=== PATIENT | male | born 1970 | race Caucasian/White ===

== ENCOUNTER → 2017-06-28 | Day surgery (SDC) | payer OTHER ==
[2017-06-27 10:57] VITALS: BMI 32.1
[~2017-06-28] MED LIST: Midazolam HCl 2 mg/2 ml Vial ONE; Ondansetron HCl/PF 4 MG/2 ML Vial ONE; Propofol 1,000 MG/100 ML VIAL IV ONE
--- NOTE | 2017-06-28 16:14 | MRI ---
MR OF THE LEFT WRIST WITHOUT IV CONTRAST 06/28/17 HISTORY: Fall in October with concern for a TFCC tear. COMPARISON: Left wrist radiograph dated 11/17/16 and 12/12/16. TECHNIQUE: The patient underwent anesthesia for the examination. The patient was placed in the magnet in an over head positioning. Due to limitations in arm positioning, the positioning within the coil was slightly limited. The patient remained in hyperextension at the radiocarpal joint which slightly limited imag e detail. There was also some motion artifact on the examination that limits image detail. FINDINGS: There is prominent fluid distention seen within the DRUJ. There is transverse oriented tear involving the body of the TFC with the largest tear gap seen on image 7 of series 11 measuring approximately 6 mm. The palmar and dorsal radial ulnar ligaments remain intact. The peripheral fovea and styloid tip attachments appear intact. There is limited visualization of meniscal homologue. The ECU tendon appe ars intact. The remainder of the extensor tendons appear intact. The scapholunate and lunatotriquetral ligaments appear intact. The extrinsic ligaments are slightly l imited in evaluation, but appear to be grossly intact. The carpal tunnel and its contents appear with in normal limits. The FCR and FCU tendons appear within normal limits. There is suspicion for a heale d dorsal avulsion injury involving the hamate, best seen on image 7 of series 6. The capitate and nehal ate angle appears to be colinear. The scaphoid is intact. IMPRESSION: 1. Large transverse oriented tear extending through the body of the TFC with approximately 6 mm gap between the central and peripheral fragments. There is a prominent amount of fluid in the DRUJ. 2. Suspicion for healed small avulsion fracture involving the dorsal hamate. 3. Scapholunate and lunatotriquetral ligaments appear intact. 4. Visualized flexor and extensor tendons appear intact. POS: [facility]
== END ==
LOC: SDC/OP 11:08
PROVIDERS: ATTEND Orthopaedic Surgery Hand Surgery
DX: S63.592A Other specified sprain of left wrist, initial encounter (principal); M25.332 Other instability, left wrist; F43.10 Post-traumatic stress disorder, unspecified; F17.290 Nicotine dependence, other tobacco product, uncomplicated; Z88.8 Allergy status to other drugs, medicaments and biological substances; Z98.1 Arthrodesis status; Z90.49 Acquired absence of other specified parts of digestive tract; Z98.890 Other specified postprocedural states; W01.0XXA Fall on same level from slipping, tripping and stumbling without subsequent striking against object, initial encounter
CPT/HCPCS: J2250; J2405; J2704

== ENCOUNTER 2017-07-16 10:01 | Outpatient (CLI) | payer OTHER ==
[2017-07-16 11:42] LABS: #Lymphocytes 1.8 thou/uL (1.20-3.40); #Monocytes 0.3 thou/uL (0.11-0.59); %Basophils 0.6 % (0.0-1.0); %Eosinophils 0.9 % (0.0-10.0); %Lymphocytes 34.4 % (21.0-51.0); %Monocytes 6.2 % (0.0-10.0); Bilirubin Negative (Negative); Blood, Urine Negative (Negative); Glucose, Urine (Dipstick) Negative (Negative); Hematocrit 46.4 % (42.0-52.0); Ketone, Urine Negative (Negative); Mean Platelet Volume 8.5 fL (7.4-10.4); Nitrite Negative (Negative); Protein, Urine (Dipstick) Negative (Neg-Trace); Urobilinogen 0.2 mg/dL (0.2-1.0); White Blood Cell (WBC) Count 5.2 thou/uL (4.8-10.8)
[2017-07-16 11:45] LABS: Bacteria/HPF None Seen HPF (None Seen); Hyaline Casts/LPF 0-3 HYALINE CAST LPF (0-3 Hyaline); Squamous Epithelial None Seen HPF (0-3); WBC/HPF None Seen HPF (0-3)
--- NOTE | 2017-07-16 18:00 | EKG ---
Test Reason : Blood Pressure : / mmHG Vent. Rate : 076 BPM Atrial Rate : 076 BPM P-R Int : 162 ms QRS Dur : 094 ms QT Int : 354 ms P-R-T Axes : 036 057 034 degrees QTc Int : 398 ms Normal sinus rhythm Normal ECG No previous ECGs available Confirmed by DR. Tyson RAVI (3) on 07/16/2017 6:00:26 PM Referred By: PETDA Confirmed By:DR. Tyson RAVI
== END 2017-07-16 10:02 | disposition home or self-care (01) ==
LOC: LABBT 10:01
PROVIDERS: ATTEND Orthopaedic Surgery Hand Surgery
DX: Z01.818 Encounter for other preprocedural examination (principal); S63.592A Other specified sprain of left wrist, initial encounter
CPT/HCPCS: 81001; 85025; 85730; 93005; 93010

== ENCOUNTER 2017-07-23 06:40 | Day surgery (SDC) | payer OTHER ==
[2017-07-16 10:27] VITALS: BMI 32.1
[2017-07-23] MEDS ORDERED: Midazolam HCl 2 mg/2 ml Vial ONE ×2 (08:45→09:20)
[2017-07-23] MEDS ORDERED: CEFAZOLIN/Water 2 GM/20 ML SYRINGE ONE (08:45)
[2017-07-23] MEDS ORDERED: Bacitracin Zinc Ointment 30 gm TUBE ONE (09:14)
[2017-07-23] MEDS ORDERED: Bupivacaine PF 0.5% 30 ML VIAL ONE (09:14)
[2017-07-23] MEDS ORDERED: Fentanyl 100 MCG/2 ML VIAL ONE ×3 (09:20→13:08)
[2017-07-23] MEDS ORDERED: EPINEPHrine 1 MG/ML AMP ONE (10:03)
[2017-07-23] MEDS ORDERED: Ketorolac Tromethamine 30 MG/ML VIAL ONE ×2 (12:53)
--- NOTE | 2017-07-23 13:02 | RAD ---
LEFT WRIST THREE VIEWS: History: Intraoperative films. FINDINGS: Comparison is made with 12-12-16. Pins are seen across the lunate and triquetral region. There are some surgical anchors on the ulnar s lisset of the lunotriquetral joint. IMPRESSION: Post-operative changes as above. POS: [facility]
[2017-07-23] MEDS ORDERED: HYDROcodone/Acetaminophen 5/325 mg Tablet ONE (13:54)
--- NOTE | 2017-07-23 15:58 | RAD ---
LEFT ELBOW TWO VIEWS: HISTORY: Elbow pain, postop. FINDINGS: There is a splint present. I do not see any signs of fracture or dislocation. The lateral film is o bliqued. IMPRESSION: No acute bony findings of the elbow. POS: [facility]
[2017-07-23] MEDS ORDERED: Lidocaine 1% PF 5 ML VIAL ONE (17:10)
[2017-07-23] MEDS ORDERED: PROPOFOL 200 MG/20 ML VIAL ONE (17:10)
[2017-07-23] MEDS ORDERED: Ondansetron HCl/PF 4 MG/2 ML Vial ONE (17:10)
--- NOTE | 2017-07-24 13:29 | OP ---
DATE OF SURGERY: 07/23/2017 SURGEON: Eddie Schmidt M.D. POSTOPERATIVE DIAGNOSES: 1. Left wrist triangular fibrocartilage tear. 2. Left wrist synovectomy. 3. Left wrist ulnocarpal impingement. POSTOPERATIVE DIAGNOSES: 1. No ulnocarpal impingement. 2. Left wrist fibrocartilage central tear, small size 6 mm. 3. Lunate triquetral ligament tear with instability at this joint without arthritic changes. 4. Marked synovectomy, wrist. PROCEDURE PERFORMED: 1. Arthroscopic synovectomy, left wrist. 2. Arthroscopic left wrist triangular fibrocartilage debridement. 3. Open lunotriquetral ligament reconstruction with pinning of the joint, x2. 4. C-arm supervision. SPECIMEN: None. TOURNIQUET TIME: 60 minutes. ESTIMATED BLOOD LOSS: 10 mL. The tear was central to radial. No impingement of the ulna into the carpus through this tear was see n. DESCRIPTION OF PROCEDURE: After successful general LMA technique, the patient was had the limb prepp ed and draped. Anesthesia was by MAC anesthesia. The patient was placed in arthroscopic inline dire ct with 10 pounds of traction and appropriate padding at the arm side. He then had the 2, 3, a nd 6U and 6R portals established with epinephrine inside the irrigant. Panoramic view of the wrist r evealed he had no scapholunate tear and no lunate side chondral tear. No evidence of ulnocarpal impi ngement. No radial tear, no scaphoid abnormality, no mid carpal abnormality except for we saw the sowmya notriquetral area move and once probed, we could see there was a tear off at approximately 40% of the ligament allowing for increased motion and translation. We then switched portals and visualized fro m the radial side and saw the TFCC tear which was complete, it was approximately 5 mm long with 1-2 m m separation. We trimmed to a stable rim of 5.5 mm in diameter. It did not involve the radial inser tion. It was slightly more radial than central, however. Through this, the ulna did not impinge whatsoever, so we did not feel shortening was indicated. We then abandoned the arthroscopy, lateral incision over the fifth dorsal compartment, carried throug h skin and subcutaneous tissue, released the tendon from the retinaculum and into the joint. From he re, we found the tear, it was from the triquetrum, so we then prepared the bed, used multiple anchors to create suture point into the trough that was made with a small bur and curet and then under C-arm , was able to place 2K wires through the triquetrum toward lunate and while it was just short of the lunate, reduced the joint and then pinned it. From here, with it pinned and slightly reduced, we had an easier time tying the sutures and bringing the flap of the ligament into the trough. There was e xcellent reduction and the sutures were well tied. Sutures were cut. We then released the tourniquet, obtained hemostasis. Closed the wrist joint with a 2-0 Vicryl in interrupted pattern, closed the retinaculum with 3-0 Monocryl, 4-0 Monocryl was used for subcutaneous closure, and the wrist and the skin was reapproximated with interrupted 4-0 nylon. We injected with 20 mL of 0.5% Marcaine, placed in a bulky dressing along with a sugar tong splint a nd he left the operating room without evidence of anesthetic or operative complications.
== END 2017-07-23 16:50 | disposition home or self-care (01) ==
LOC: SDC 06:40
PROVIDERS: ATTEND Orthopaedic Surgery Hand Surgery
DX: S63.592A Other specified sprain of left wrist, initial encounter (principal); S63.512A Sprain of carpal joint of left wrist, initial encounter; F43.10 Post-traumatic stress disorder, unspecified; F40.240 Claustrophobia; Z88.8 Allergy status to other drugs, medicaments and biological substances; Z98.1 Arthrodesis status; Z90.49 Acquired absence of other specified parts of digestive tract; Z90.89 Acquired absence of other organs; Z98.890 Other specified postprocedural states
CPT/HCPCS: 76001; 96372; 96374; C1713; J0171; J1885; J2001; J2250; J2405; J2704; J3010; S0020

== ENCOUNTER 2017-07-30 12:52 | Emergency (ER) | payer OTHER ==
[2017-07-30] MEDS ORDERED: Bacitracin Zinc 1 Packet ONE (14:08)
[2017-07-30] MEDS ORDERED: Ketorolac Tromethamine 30 MG/ML VIAL ONE (14:10)
== END 2017-07-30 14:19 | disposition home or self-care (01) ==
LOC: ERS 12:52
DX: M79.642 Pain in left hand (principal); F43.10 Post-traumatic stress disorder, unspecified; Z87.891 Personal history of nicotine dependence
CPT/HCPCS: 96374; J1885

== ENCOUNTER 2018-09-19 11:11 | Day surgery (SDC) | payer OTHER ==
--- NOTE | 2018-09-17 19:04 | HP ---
HISTORY OF PRESENT ILLNESS: Mr. Isaacs is a pleasant 48-year-old gentleman, who presents today for evaluation of several years now of right-sided partial L4, possibly L3 and then even some L5 type pain that are intermittent, mostly when standing for periods of time. When seated, he has minimal pain, mostly discomfort in the lower back. He has a history positive for L4-S1 anterior and posterior lumbar fusion with Dr. Pittman in [place]. He had been feeling pretty well, but now more recently, his pain started to increase. In addition, he also reports a band like pain between the shoulder blades and just below the tips of his shoulder blades, but frequently it is axial in nature over the thoracic spine. He hopes to investigate further to see if there is anything to do for this pain as it is starting to distress him some, particularly with activity. PAST MEDICAL HISTORY: Significant for PTSD and low back injury. PAST SURGICAL HISTORY: Right foot, tonsillectomy, right knee, right finger unspecified, right thumb unspecified, cholecystectomy, lumbar fusion in 2012, left femur surgery, left wrist and an unspecified shoulder. CURRENT MEDICATIONS: Escitalopram. ALLERGIES: NO KNOWN DRUG ALLERGIES. PHYSICAL EXAMINATION: NEUROLOGIC: The patient is alert and oriented x3. Gait is very mildly antalgic. Lower extremity motor exam is normal. He has mild tenderness over the paraspinous musculature in the thoracic spine and lumbar spine. He has a positive straight leg raise on the right. There is mild sensory disturbance of the anterior right thigh. Otherwise, no sensory disturbance that I can discern. Reflexes are equally present bilaterally in the patella. ASSESSMENT: Lumbar radiculopathy, lumbar back pain, and thoracic back pain. PLAN: At this time, we will obtain a myelogram given his what sounds to be extensive hardware within his lumbar spine to assess for neurological impingement. We will also check thoracic spine given his pain in that area and at his request, we will follow up afterwards. Job ID: [id number]
[2018-09-18 16:10] VITALS: BMI 30.2
[~2018-09-19 11:11] MED LIST changes: +Iopamidol-M 300 61% 15 ML VIAL ONE; -Midazolam HCl 2 mg/2 ml Vial ONE; -Ondansetron HCl/PF 4 MG/2 ML Vial ONE; -Propofol 1,000 MG/100 ML VIAL IV ONE
[2018-09-19] MEDS ORDERED: PROPOFOL 200 MG/20 ML VIAL ONE (13:23)
[2018-09-19] MEDS ORDERED: Fentanyl 100 MCG/2 ML VIAL ONE (13:34)
[2018-09-19] MEDS ORDERED: Midazolam HCl 2 mg/2 ml Vial ONE (13:34)
--- NOTE | 2018-09-19 15:50 | RAD ---
LUMBAR AND THORACIC MYELOGRAM: HISTORY: Pain. Radiculopathy. COMPARISON: None. EXPOSURE: 0.6 minutes 228.0 Gy per m2. FINDINGS: The initial two views of the thoracic spine demonstrate preservation of vertebral body height. No fr actures or malalignment. Mild loss of disk space height and osteophytes formation in the distal thor acic spine and thoracolumbar junction. There are five lumbar type vertebral bodies. There are bilateral transpedicular screws at L4 and S1. Additional fusion hardware is noted at L4, L5, and S1. Successful lumbar puncture for intrathecal contrast administration. A total of 9 mL of Isovue-M 300 contrast was administered intrathecally. The patient tolerated the procedure well. No immediate or post procedure complications. TECHNIQUE: Consent obtained to perform a lumbar puncture for intrathecal contrast administration. The L2-L3 lev el was deemed appropriate. The skin was prepped and draped in a sterile fashion. Lidocaine 1% buffe red with sodium bicarbonate was used for local anesthesia. Under fluoroscopic guidance, a 22 gauge s thomas needle was advanced into the CSF space. A total of 9 mL of Isovue-M 300 contrast was administe red intrathecally. The patient tolerated the procedure well. No immediate or post procedure complic ations. IMPRESSION: Successful lumbar puncture for thoracic and lumbar spine myelogram. POS: [facility]
--- NOTE | 2018-09-19 16:01 | CT ---
POST MYELOGRAM LUMBAR SPINE CT: HISTORY: Lumbar radiculopathy. COMPARISON: None. FINDINGS: There are 5 lumbar-type vertebral bodies. Lumbar spine vertebral body height is maintained. There i s no fracture. There are bilateral transpedicular screws at L4 and S1. There is perihardware lucenc y involving bilateral transpedicular screws at S1 (right slightly greater than left). There is an an terior fusion screw associated with disk prosthesis at L4-L5 and L5-S1. Vertebral body heights are maintained. There is no fracture. 4.6 mm of anterolisthesis of L5 upon S 1. Visualized paraspinal muscles and psoas muscles have appropriate attenuation. Visualized alimentary canal, mesentery, and solid organs are unremarkable. Conus medullaris terminates at T12-L1 disk space level. T11-T12: No significant central canal stenosis or foraminal narrowing. T12-L1: No significant central canal stenosis or foraminal narrowing. L1-L2: No significant central canal stenosis or neural foraminal narrowing. L2-L3: No significant central canal stenosis or foraminal narrowing. Minimal ligamentum flavum thic kening. L3-L4: No significant central canal stenosis or neural foraminal narrowing. L4-L5: There is a disk prosthesis. There is no significant central canal stenosis. Neural foramina are minimally narrowed bilaterally. L5-S1: There is a disk prosthesis. There is no significant central canal stenosis. Neural foramina are patent bilaterally. There are bilateral pars defects at L5. IMPRESSION: 1. Bilateral transpedicular screws at L4 and S1. There is perihardware lucency involving bilateral transpedicular screws at S1. 2. Spondylolysis and spondylolisthesis at L5-S1 as described above. There is approximately 4.6 cm o f anterolisthesis of L5 upon S1. 3. No significant central canal stenosis or significant foraminal narrowing. POS: [facility]
--- NOTE | 2018-09-19 16:33 | CT ---
POST MYELOGRAM THORACIC SPINE CT: HISTORY: Radiculopathy. Pain. COMPARISON: None. TECHNIQUE: Post myelogram thoracic spine CT is performed in the axial plane. Reformatted images are submitted f or interpretation. FINDINGS: Thoracic spine vertebral body height is maintained. There is no evidence of fracture. The visualized mediastinum and solid abdominal viscera are unremarkable. Trachea and central bronchi are patent. Dependent atelectatic changes. No masses or consolidation. No pleural effusion or pneumothorax. Incidental 5 mm nodule in the left lower lobe and 3 mm nodule in the right lower lobe. The conus medullaris terminates at the inferior aspect of T12. T1-T2 through T4-T5. No significant central canal stenosis. T5-T6: Minimal right paracentral disk bulge without significant central canal stenosis. Minimal def ormity of the ventral cord. T6-T7: No significant central canal stenosis. T7-T8: Small mass effect upon the left aspect of the thecal sac, secondary to an osteophyte emanatin g from the left inferior endplate of T7. T8-T9: There is mass effect upon the ventral and right anterior aspect of the thecal sac and the rig ht aspect of the cord secondary to disk material. T9-T10/T10-T11/T11-T12: No significant central canal stenosis. Throughout the thoracic spine, the neural foramina appear to be patent. IMPRESSION: 1. Degenerative changes of the thoracic spine, as detailed above. 2. There is some mass effect and deformity of the thoracic cord at T8-T9 3. Similar though less evident findings at T5-T6 and at T7-T8. POS: [facility]
== END 2018-09-19 16:17 | disposition home or self-care (01) ==
LOC: SDC/OP 11:11
PROVIDERS: ATTEND Neurological Surgery
PROC: B01B1ZZ Fluoroscopy of Spinal Cord using Low Osmolar Contrast (ICD-10-PCS; principal; 2018-09-19)
DX: M54.16 Radiculopathy, lumbar region (principal); M43.17 Spondylolisthesis, lumbosacral region; M54.6 Pain in thoracic spine; F32.9 Major depressive disorder, single episode, unspecified; F43.10 Post-traumatic stress disorder, unspecified; F40.240 Claustrophobia; Z87.891 Personal history of nicotine dependence; Z79.899 Other long term (current) drug therapy; Z98.890 Other specified postprocedural states
CPT/HCPCS: 62305; 72129; 72132; J2250; J3010

== ENCOUNTER → 2018-09-22 | Day surgery (SDC) | payer OTHER | LOC: SDC/OP 11:43 | PROVIDERS: ATTEND Anesthesiology | PROC: 3E0S3GC Introduction of Other Therapeutic Substance into Epidural Space, Percutaneous Approach (ICD-10-PCS; principal; 2018-09-22) | DX: G97.1 Other reaction to spinal and lumbar puncture (principal); R51 Headache; F43.10 Post-traumatic stress disorder, unspecified; Z79.899 Other long term (current) drug therapy; Z98.890 Other specified postprocedural states | CPT/HCPCS: 62272 ==

== ENCOUNTER 2018-12-26 10:30 | Inpatient (IN) | payer OTHER ==
[2018-12-26 08:29] VITALS: BMI 28.8
--- NOTE | 2019-01-01 12:38 | HP ---
HISTORY: Mr. Isaacs is a 48-year-old, who presented to our clinic for evaluation of severe lower back pain. He has seen Dr. Nichole, who has been performing facet blocks, who returns now for a possible surgical discussion. He states he has a history of L4-S1 posterior and anterior fusion at an outside facility many years back and while he did well initially; over the last three years, he started to have progressive pain. It appears that he has mostly axial lower back pain with some lateral hip and thigh pain, although that is less frequent in the back pain. CT myelogram reveals loosening of posterior hardware screws at S1 bilaterally, which are his only part of four-screws construct, so this certainly could be feasible causing axial back pain. He hopes to move forward with removal of hardware. PAST MEDICAL HISTORY: Significant for anxiety and depression. PAST SURGICAL HISTORY: Right foot, tonsillectomy, right knee, unspecified; left knee, unspecified; right third digit and thumb repair; cholecystectomy; spinal fusion x2; shoulder surgery; left wrist surgery; femur fracture with fixation. CURRENT MEDICATIONS: Citalopram. ALLERGIES: NO KNOWN DRUG ALLERGIES. PHYSICAL EXAMINATION: The patient is alert x3. Gait is mildly antalgic. Lower extremity exam is normal. ASSESSMENT: Hardware malfunction and lumbar axial back pain. PLAN: Dr. Mena met with the patient, reviewed imaging, advocated for lumbar spine hardware removal. He explained to the patient the risks, benefits, and alternatives to the procedure. The patient expressed understanding and elected to move forward with surgery as discussed. I do believe the patient is mentally competent and capable of making medical decisions for himself. We will move forward with surgery as planned. Job ID: [id number]
[2019-01-02] MEDS ORDERED: Fentanyl 100 MCG/2 ML VIAL ONE ×3 (06:36→08:42)
[2019-01-02] MEDS ORDERED: Thrombin 5000 UNITS/5 ML VIAL ONE (06:49)
[2019-01-02] MEDS ORDERED: Bupivacaine HCl 0.5%/Epinephrine 1:200,000/PF 30 ml Vial ONE (06:49)
[2019-01-02] MEDS ORDERED: Midazolam HCl 2 mg/2 ml Vial ONE (06:54)
[2019-01-02] MEDS ORDERED: Tamsulosin HCl 0.4 MG CAP ONE (08:42)
[2019-01-02] MEDS ORDERED: Promethazine HCl 25 MG/ML VIAL ONE (09:52)
--- NOTE | 2019-01-02 14:23 | OP ---
DATE OF PROCEDURE: 01/02/2019 INCOMING INSPECTOR: Luca Wynn PA-C INDICATION: Pain. DIAGNOSIS: Hardware pain. PROCEDURE PERFORMED: Removal of posterolateral instrumented hardware. ANESTHESIA: General. DESCRIPTION OF PROCEDURE: The patient was brought into the operating room and placed under general anesthesia. He was flipped from the supine to prone position on the operating room table. He has had 2 paramidline incisions from placement of his hardware in the past. These same incisions were prepped and draped in the usual sterile fashion. Following an appropriate pause, the incisions were created. The screw heads on each side were identified. Set screws were removed as were the 2 rods and all 4 screws in total. After removing all the hardware, the wound was irrigated. Hemostasis was maintained throughout. The wound was infiltrated with Marcaine for postoperative analgesia. The wounds were then closed in anatomic layers and a pressure dressing was applied. There were no known procedural complications. Job ID: [id number]
== END 2019-01-02 11:05 | disposition home or self-care (01) | DRG 517 ==
LOC: SURG A 01-02 05:30
PROVIDERS: ADMIT Neurological Surgery; ATTEND Neurological Surgery
PROC: 0SP304Z Removal of Internal Fixation Device from Lumbosacral Joint, Open Approach (ICD-10-PCS; principal; 2019-01-02)
DX: T84.216A Breakdown (mechanical) of internal fixation device of vertebrae, initial encounter (principal); M54.5 Low back pain; M54.2 Cervicalgia; F41.9 Anxiety disorder, unspecified; F32.9 Major depressive disorder, single episode, unspecified; M19.91 Primary osteoarthritis, unspecified site; Z90.49 Acquired absence of other specified parts of digestive tract; Z79.899 Other long term (current) drug therapy
CPT/HCPCS: 76000; J0131; J0670; J0690; J2250; J2550; J3010

== ENCOUNTER 2019-05-20 20:30 | Outpatient (CLI) | payer OTHER | END 2019-05-20 20:31 | disposition home or self-care (01) | LOC: SLEEPLAB 20:30 | PROVIDERS: ATTEND Family Medicine | DX: G47.33 Obstructive sleep apnea (adult) (pediatric) (principal); R53.83 Other fatigue; F32.9 Major depressive disorder, single episode, unspecified; F41.9 Anxiety disorder, unspecified; E66.9 Obesity, unspecified | CPT/HCPCS: 95810 ==

== ENCOUNTER 2019-06-12 20:30 | Outpatient (CLI) | payer OTHER | END 2019-06-12 20:31 | disposition home or self-care (01) | LOC: SLEEPLAB 20:30 | PROVIDERS: ATTEND Family Medicine | DX: G47.33 Obstructive sleep apnea (adult) (pediatric) (principal); G47.00 Insomnia, unspecified; R09.89 Other specified symptoms and signs involving the circulatory and respiratory systems; R53.83 Other fatigue; F41.9 Anxiety disorder, unspecified; F32.9 Major depressive disorder, single episode, unspecified; R06.83 Snoring; E66.9 Obesity, unspecified; Z68.32 Body mass index [BMI] 32.0-32.9, adult | CPT/HCPCS: 95811 ==

== ENCOUNTER 2019-06-16 12:47 | Outpatient (CLI) | payer OTHER | END 2019-06-16 12:48 | disposition home or self-care (01) | PROVIDERS: ATTEND Family Medicine | DX: R06.09 Other forms of dyspnea (principal); R42 Dizziness and giddiness; I08.8 Other rheumatic multiple valve diseases | CPT/HCPCS: 93017; 93306 ==

== ENCOUNTER 2020-05-05 14:53 | Outpatient (CLI) | payer BC, OTHER ==
[2020-05-06 12:38] LABS: SARS-CoV-2 MS2 Positive; SARS-CoV-2 N Gene Negative; SARS-CoV-2 S Gene Negative; SARS-CoV-2 by NAA Not Detected (NotDetected); SARS-CoV-2 orf1ab Negative
== END 2020-05-05 14:54 | disposition home or self-care (01) ==
LOC: LABBT 14:53
PROVIDERS: ATTEND Family Medicine
DX: Z20.828 Contact with and (suspected) exposure to other viral communicable diseases (principal)
CPT/HCPCS: 87635; U0003

== ENCOUNTER 2020-05-09 09:58 | Day surgery (SDC) | payer BC, OTHER | END 2020-05-10 10:45 | disposition home or self-care (01) | LOC: SDC/OP 09:58 | PROVIDERS: ATTEND Family Medicine | DX: M25.512 Pain in left shoulder (principal); Z53.09 Procedure and treatment not carried out because of other contraindication ==

== ENCOUNTER 2020-05-13 08:33 | Outpatient (CLI) | payer BC, OTHER ==
[2020-05-13 14:58] LABS: SARS-CoV-2 MS2 Positive; SARS-CoV-2 N Gene Negative; SARS-CoV-2 S Gene Negative; SARS-CoV-2 by NAA Not Detected (NotDetected); SARS-CoV-2 orf1ab Negative
== END 2020-05-13 08:34 | disposition home or self-care (01) ==
LOC: LABBT 08:33
PROVIDERS: ATTEND Family Medicine
DX: Z20.828 Contact with and (suspected) exposure to other viral communicable diseases (principal)
CPT/HCPCS: 87635; U0003

== ENCOUNTER 2020-05-16 09:33 | Day surgery (SDC) | payer BC, OTHER ==
[2020-05-13 14:05] VITALS: BMI 30.8
[~2020-05-16 09:33] MED LIST changes: -Iopamidol-M 300 61% 15 ML VIAL ONE; +Lidocaine 1% PF 5 ML VIAL ONE; +Ondansetron PF 4 MG/2 ML Vial ONE; +PROPOFOL 200 MG/20 ML VIAL ONE
[2020-05-16] MEDS ORDERED: Fentanyl 100 MCG/2 ML VIAL ONE (12:16)
[2020-05-16] MEDS ORDERED: Midazolam HCl 2 mg/2 ml Vial ONE (12:16)
--- NOTE | 2020-05-16 15:10 | MRI ---
MRI OF THE LEFT SHOULDER WITHOUT CONTRAST: Date: 05/16/2020 INDICATION: History of left shoulder pain. COMPARISON: Left shoulder radiograph dated 04/19/2020. FINDINGS: There is a bursal surface tear involving the posterior supraspinatus at the footprint with some intra tendon delamination into the posterior supraspinatus and anterior infraspinatus, best seen on image 1 2 of series 4 and image 6 of series 6. There is degenerative subchondral cyst-like abnormality seen i nvolving the adjacent greater tuberosity. There is mild supraspinatus and infraspinatus tendinosis. B iceps tendon is located. There is a serpiginous vascular structure seen posterior to the glenoid labr um giving the appearance of a long paralabral cysts. No definite signal abnormality is seen involving the glenoid labrum. The glenoid labrum appears intact. Glenohumeral articular surface is normal appe aring. There is mild AC joint osteoarthrosis. No muscular atrophy is evident. Biceps tendon is locate d within the bicipital groove. The anterior inferior glenohumeral labral ligamentous complex is intac t. There is a Type II acromion. IMPRESSION: 1. Bursal surface tear involving the posterior supraspinatus at the footprint involving 50% of the t endon thickness. The tear measures approximately 1.5 cm in its greatest medial lateral dimension and approximately 7.0 mm in its greatest AP dimensions. There is delamination involving the posterior sup raspinatus and anterior infraspinatus from the tear site. 2. Mild AC joint osteoarthrosis. POS: [facility]
== END 2020-05-16 14:25 | disposition home or self-care (01) ==
LOC: SDC/OP 09:33
PROVIDERS: ATTEND Family Medicine
DX: M19.012 Primary osteoarthritis, left shoulder (principal); G47.33 Obstructive sleep apnea (adult) (pediatric); F43.10 Post-traumatic stress disorder, unspecified; F40.240 Claustrophobia; F32.9 Major depressive disorder, single episode, unspecified; E78.2 Mixed hyperlipidemia; Z79.899 Other long term (current) drug therapy; Z87.891 Personal history of nicotine dependence
CPT/HCPCS: J2250; J2405; J2704; J3010

== ENCOUNTER 2020-06-20 06:45 | Outpatient (CLI) | payer BC, OTHER ==
[2020-06-20 14:51] LABS: #Eosinphils 0.1 10x3/uL (0.0-0.5); #Monocytes 0.3 10x3/uL (0.0-1.1); %Basophils 0.5 % (0.0-2.0); %Eosinophils 1.1 % (0.0-6.0); %Lymphocytes 37.3 % (18.0-47.0); %Monocytes 6.2 % (0.0-10.0); %Neutrophils 54.5 % (40.0-75.0); Mean Corpuscular HGB CONC 34.3 G/DL (32.0-36.0); Mean Corpuscular Hemoglobin 30.7 PG (27.0-33.0); Mean Corpuscular Volume 89.6 fl (80.0-100.0); Mean Platelet Volume 10.3 fl (7.4-10.4); Platelet Count 200 10x3/uL (130-400); RBC Distribution Width 12.6 % (11.5-14.5); Red Blood Cell (RBC) Count 5.21 10x6/uL (4.40-5.80); White Blood Cell (WBC) Count 5.5 10x3/uL (4.5-11.0)
[2020-06-20 14:53] LABS: Anion Gap 14 mmol/L (10-20); BUN (Urea Nitrogen) 16 mg/dL (8.9-20.6); Calc. Creatinine Clearance 0 mL/min (70-130); Calcium 8.7 mg/dL (7.8-10.44); Carbon Dioxide 24 mmol/L (22-29); Chloride 106 mmol/L (98-107); Estimated GFR-MDRD 81; Glucose 96 mg/dL (70-105); Potassium 4.2 mmol/L (3.5-5.1); Sodium 140 mmol/L (136-145)
[2020-06-21 03:58] LABS: SARS-CoV-2 MS2 Positive; SARS-CoV-2 N Gene Negative; SARS-CoV-2 S Gene Negative; SARS-CoV-2 by NAA Not Detected (NotDetected); SARS-CoV-2 orf1ab Negative
--- NOTE | 2020-06-21 12:35 | EKG ---
Test Reason : Blood Pressure : / mmHG Vent. Rate : 066 BPM Atrial Rate : 066 BPM P-R Int : 154 ms QRS Dur : 090 ms QT Int : 386 ms P-R-T Axes : 047 067 051 degrees QTc Int : 404 ms Normal sinus rhythm Confirmed by DR. Tyson RAVI (3) on 06/21/2020 12:35:05 PM Referred By: JANAY Confirmed By:DR. Tyson RAVI
== END 2020-06-20 06:46 | disposition home or self-care (01) ==
LOC: LABBT 06:45
PROVIDERS: ATTEND Orthopaedic Surgery
DX: Z01.818 Encounter for other preprocedural examination (principal); Z20.828 Contact with and (suspected) exposure to other viral communicable diseases; M75.102 Unspecified rotator cuff tear or rupture of left shoulder, not specified as traumatic
CPT/HCPCS: 80048; 85025; 87635; 93005; 93010; U0003

== ENCOUNTER 2020-06-23 07:02 | Day surgery (SDC) | payer BC, OTHER ==
[2020-06-22 12:26] VITALS: BMI 30.8
[2020-06-23] MEDS ORDERED: Fentanyl 100 MCG/2 ML VIAL ONE ×2 (07:57→09:13)
[2020-06-23] MEDS ORDERED: Midazolam HCl 2 mg/2 ml Vial ONE (07:57)
[2020-06-23] MEDS ORDERED: Dexmedetomidine 200 MCG/2 ML VIAL ONE (09:13)
[2020-06-23] MEDS ORDERED: Ondansetron PF 4 MG/2 ML Vial IVP PRN (09:45)
[2020-06-23] MEDS ORDERED: Promethazine HCl 25 MG/ML VIAL IM PRN (09:45)
[2020-06-23] MEDS ORDERED: traMADol HCl 50 MG TAB PO PRN ×2 (09:45)
[2020-06-23] MEDS ORDERED: Ropivacaine 0.2% 550 ML 550 ML NERVE BLCK SCH (09:45)
[2020-06-23] MEDS ORDERED: HYDROcodone/Acetaminophen 10/325 mg Tablet PO PRN ×2 (09:45)
[2020-06-23] MEDS ORDERED: Zolpidem Tartrate 5 MG TAB PO PRN (09:45)
--- NOTE | 2020-06-23 13:58 | OP ---
DATE OF PROCEDURE: 06/23/2020 PREOPERATIVE DIAGNOSIS: Rotator cuff tear, left shoulder. POSTOPERATIVE DIAGNOSIS: Rotator cuff tear, left shoulder. PROCEDURE PERFORMED: Left arthroscopic rotator cuff repair. ANESTHESIA: General. BLOOD LOSS: Minimal. SPECIMENS: None. DRAINS: None. COMPLICATIONS: None. DESCRIPTION OF PROCEDURE: The patient was placed in a right lateral decubitus position. Left arm was prepped and draped in the usual sterile fashion. 15 pounds of traction was applied. The glenohumeral joint was free of disease within the rotator cuff tear. The biceps tendon was stable and intact. There was no arthritis. The scope was placed in the subacromial bursa. Subacromial bursectomy was performed. Decompression performed inferiorly. I freshened the greater tuberosity. Rotator cuff was torn. We freshened the margin of the rotator cuff tear itself and placed 2 suture anchors with tape for medial row, passed these through the cuff and then passed back again through self-punching SwiveLock for a lateral row for a SpeedBridge type technique. Shoulder was then drained. Portals closed with nylon suture. Sterile dressings applied. There were no complications. Job ID: [id number]
== END 2020-06-23 13:10 | disposition home or self-care (01) ==
LOC: SDC 07:02
PROVIDERS: ATTEND Orthopaedic Surgery
PROC: 0LQ24ZZ Repair Left Shoulder Tendon, Percutaneous Endoscopic Approach (ICD-10-PCS; principal; 2020-06-23)
PROC: 3E0T3BZ Introduction of Anesthetic Agent into Peripheral Nerves and Plexi, Percutaneous Approach (ICD-10-PCS; principal; 2020-06-23)
DX: M75.112 Incomplete rotator cuff tear or rupture of left shoulder, not specified as traumatic (principal); G89.18 Other acute postprocedural pain; F43.10 Post-traumatic stress disorder, unspecified; F32.9 Major depressive disorder, single episode, unspecified; Z79.899 Other long term (current) drug therapy; Z87.891 Personal history of nicotine dependence
CPT/HCPCS: A4306; C1713; J0690; J2250; J2795; J3010

== ENCOUNTER 2020-11-14 15:41 | Outpatient (CLI) | payer OTHER ==
[2020-11-15 01:19] LABS: SARS-CoV-2 PCR by NAA Not Detected (NotDetected)
== END 2020-11-14 15:42 | disposition home or self-care (01) ==
LOC: LABBT 15:41
PROVIDERS: ATTEND Neurological Surgery
DX: Z01.812 Encounter for preprocedural laboratory examination (principal); Z98.890 Other specified postprocedural states; Z20.822 Contact with and (suspected) exposure to COVID-19
CPT/HCPCS: 87635; U0003; U0005

== ENCOUNTER 2020-11-17 06:26 | Day surgery (SDC) | payer BC, OTHER ==
[2020-11-16 10:44] VITALS: BMI 31.4
[2020-11-17] MEDS ORDERED: Midazolam HCl 2 mg/2 ml Vial ONE (07:38)
[2020-11-17] MEDS ORDERED: Fentanyl 100 MCG/2 ML VIAL ONE ×3 (07:38→09:45)
[2020-11-17] MEDS ORDERED: Ondansetron PF 4 MG/2 ML Vial IVP PRN (08:45)
[2020-11-17] MEDS ORDERED: Ropivacaine 2% HCl/PF (20 MG/10 ML VIAL) ONE (08:45)
[2020-11-17] MEDS ORDERED: Rocuronium Bromide 10 MG/ML (10ML VIAL) ONE (08:45)
[2020-11-17] MEDS ORDERED: traMADol HCl 50 MG TAB PO PRN ×2 (08:45)
[2020-11-17] MEDS ORDERED: Zolpidem Tartrate 5 MG TAB PO PRN (08:45)
[2020-11-17] MEDS ORDERED: PROPOFOL 200 MG/20 ML VIAL ONE (08:45)
[2020-11-17] MEDS ORDERED: Glycopyrrolate 0.2 MG/ML 5 ML SYRINGE ONE (08:45)
[2020-11-17] MEDS ORDERED: Lidocaine 1% PF 5 ML VIAL ONE (08:45)
[2020-11-17] MEDS ORDERED: Promethazine HCl 25 MG/ML VIAL IM PRN (08:45)
[2020-11-17] MEDS ORDERED: HYDROcodone/Acetaminophen 5/325 mg Tablet PO PRN ×2 (08:45)
[2020-11-17] MEDS ORDERED: Ondansetron PF 4 MG/2 ML Vial ONE (08:45)
[2020-11-17] MEDS ORDERED: ePHEDrine Sulfate 50 MG/10 ML VIAL ONE (08:45)
[2020-11-17] MEDS ORDERED: Ketorolac Tromethamine 30 MG/ML VIAL IVP PRN (08:45)
[2020-11-17] MEDS ORDERED: Ropivacaine 0.2% 550 ML 550 ML NERVE BLCK SCH (08:45)
[2020-11-17] MEDS ORDERED: Dexamethasone 20 MG/5 ML VIAL ONE (08:45)
[2020-11-17] MEDS ORDERED: Ropivacaine 0.5% HCl/PF (150 MG/30 ML VIAL) ONE (08:45)
== END 2020-11-17 12:12 | disposition home or self-care (01) ==
LOC: SDC 06:26
PROVIDERS: ATTEND Orthopaedic Surgery
PROC: 0LQ20ZZ Repair Left Shoulder Tendon, Open Approach (ICD-10-PCS; principal; 2020-11-17)
PROC: 3E0T3BZ Introduction of Anesthetic Agent into Peripheral Nerves and Plexi, Percutaneous Approach (ICD-10-PCS; principal; 2020-11-17)
PROC: 0RNK0ZZ Release Left Shoulder Joint, Open Approach (ICD-10-PCS; principal; 2020-11-17)
DX: M75.102 Unspecified rotator cuff tear or rupture of left shoulder, not specified as traumatic (principal); G89.18 Other acute postprocedural pain; G47.30 Sleep apnea, unspecified; F17.200 Nicotine dependence, unspecified, uncomplicated; Z79.899 Other long term (current) drug therapy
CPT/HCPCS: A4306; C1713; J0690; J1100; J2250; J2405; J2704; J2795; J3010

== ENCOUNTER 2020-11-17 23:56 | Emergency (ER) | payer BC, OTHER ==
[2020-11-18] MEDS ORDERED: Lidocaine Viscous Sol 2% 15 ml UD Cup ONE (00:43)
[2020-11-18] MEDS ORDERED: Mag-Al 1200 mg/1200 mg/30 ML UDCUP ONE (00:43)
[2020-11-18] MEDS ORDERED: HYDROcodone/Acetaminophen 10/325 mg Tablet ONE (00:49)
[2020-11-18] MEDS ORDERED: Ondansetron ODT 4 MG TAB ONE (04:37)
[2020-11-18] MEDS ORDERED: Morphine 4 MG/ML VIAL ONE (04:37)
[2020-11-18] MEDS ORDERED: Bupivacaine 0.5% 10 ML VIAL ONE (05:43)
[2020-11-18] MEDS ORDERED: Bupivacaine 0.25% 10 ML VIAL ONE (05:43)
[2020-11-18] MEDS ORDERED: Fentanyl 100 MCG/2 ML VIAL ONE ×2 (06:51→08:08)
[2020-11-18] MEDS ORDERED: Ropivacaine 0.5% HCl/PF (150 MG/30 ML VIAL) ONE (08:15)
== END 2020-11-18 08:00 | disposition home or self-care (01) ==
LOC: ERS 23:56
DX: G89.18 Other acute postprocedural pain (principal); E78.00 Pure hypercholesterolemia, unspecified; M25.512 Pain in left shoulder; Z87.891 Personal history of nicotine dependence
CPT/HCPCS: 96372; 99283; J2270; J2795; J3010; J3490; Q0162; S0020

== ENCOUNTER 2022-03-15 07:20 | Outpatient (CLI) | payer BC, OTHER | END 2022-03-15 07:21 | disposition home or self-care (01) | LOC: LABBT 07:20 | PROVIDERS: ATTEND Student in an Organized Health Care Education/Training Program | DX: Z01.818 Encounter for other preprocedural examination (principal); J34.2 Deviated nasal septum; J34.89 Other specified disorders of nose and nasal sinuses; J34.3 Hypertrophy of nasal turbinates; S09.92XA Unspecified injury of nose, initial encounter; Z20.822 Contact with and (suspected) exposure to COVID-19 | CPT/HCPCS: 87811; 93005; 93010 ==

== ENCOUNTER 2022-07-27 11:11 | Day surgery (SDC) | payer BC, OTHER ==
[2022-07-26 12:41] VITALS: BMI 30.8
[~2022-07-27 11:11] MED LIST changes: -Lidocaine 1% PF 5 ML VIAL ONE; +Magnevist 469MG/ML 20 ML VIAL ONE; -Ondansetron PF 4 MG/2 ML Vial ONE; -PROPOFOL 200 MG/20 ML VIAL ONE
[2022-07-27] MEDS ORDERED: Lidocaine 1% PF 5 ML VIAL ONE (13:00)
[2022-07-27] MEDS ORDERED: PROPOFOL 200 MG/20 ML VIAL ONE (13:00)
== END 2022-07-27 14:45 | disposition home or self-care (01) ==
LOC: MRI 11:11
PROVIDERS: ATTEND Family Medicine
DX: R41.3 Other amnesia (principal); S06.9X0S Unspecified intracranial injury without loss of consciousness, sequela; R41.89 Other symptoms and signs involving cognitive functions and awareness; F33.41 Major depressive disorder, recurrent, in partial remission; E78.5 Hyperlipidemia, unspecified; G47.33 Obstructive sleep apnea (adult) (pediatric); M47.816 Spondylosis without myelopathy or radiculopathy, lumbar region; F51.01 Primary insomnia; F43.10 Post-traumatic stress disorder, unspecified; F40.240 Claustrophobia; Z79.899 Other long term (current) drug therapy
CPT/HCPCS: 70553; A9579; J2704

== ENCOUNTER 2022-09-18 13:30 | Outpatient (CLI) | payer BC, OTHER | END 2022-09-18 13:31 | disposition home or self-care (01) | LOC: SCSRAD 13:30 | PROVIDERS: ATTEND Family Medicine | DX: M54.2 Cervicalgia (principal); M47.812 Spondylosis without myelopathy or radiculopathy, cervical region | CPT/HCPCS: 72040 ==

== ENCOUNTER 2022-09-28 12:09 | Day surgery (SDC) | payer BC, OTHER ==
[2022-09-26 13:44] VITALS: BMI 30.2
[2022-09-28] MEDS ORDERED: PROPOFOL 200 MG/20 ML VIAL ONE (13:00)
[2022-09-28] MEDS ORDERED: Ondansetron PF 4 MG/2 ML Vial ONE (13:00)
[2022-09-28] MEDS ORDERED: Lidocaine 1% PF 5 ML VIAL ONE (13:00)
[2022-09-28] MEDS ORDERED: Midazolam HCl 2 mg/2 ml Vial ONE (13:11)
== END 2022-09-28 14:50 | disposition home or self-care (01) ==
LOC: SDC/OP 12:09
PROVIDERS: ATTEND Family Medicine
DX: M47.22 Other spondylosis with radiculopathy, cervical region (principal); M47.812 Spondylosis without myelopathy or radiculopathy, cervical region; M48.02 Spinal stenosis, cervical region; M50.31 Other cervical disc degeneration, high cervical region; M50.21 Other cervical disc displacement, high cervical region; M48.03 Spinal stenosis, cervicothoracic region; G47.33 Obstructive sleep apnea (adult) (pediatric); Z79.899 Other long term (current) drug therapy
CPT/HCPCS: 72141; J2250

== ENCOUNTER 2022-11-07 06:53 | Day surgery (SDC) | payer BC, OTHER ==
[2022-11-06 08:59] VITALS: BMI 30.2
[2022-11-07] MEDS ORDERED: Sodium Chloride 0.9% 100 ML ONE ×2 (08:38→12:21)
[2022-11-07] MEDS ORDERED: CEFAZOLIN 2 GM VIAL ONE ×2 (08:38→12:21)
[2022-11-07] MEDS ORDERED: Thrombin 5000 UNITS/5 ML VIAL ONE (08:44)
[2022-11-07] MEDS ORDERED: fentaNYL PF 100 MCG/2 ML SYRINGE ONE (08:45)
[2022-11-07] MEDS ORDERED: HYDROmorphone 0.5 MG/0.5 ML SYRINGE ONE (08:46)
[2022-11-07] MEDS ORDERED: Rocuronium Bromide 10 MG/ML (10ML VIAL) ONE (09:08)
[2022-11-07] MEDS ORDERED: Ondansetron PF 4 MG/2 ML Vial ONE ×2 (09:08→09:45)
[2022-11-07] MEDS ORDERED: Lidocaine 1% PF 5 ML VIAL ONE (09:08)
[2022-11-07] MEDS ORDERED: Dexamethasone 20 MG/5 ML VIAL ONE (09:08)
[2022-11-07] MEDS ORDERED: Metoclopramide HCl 10 MG/2 ML VIAL ONE (09:08)
[2022-11-07] MEDS ORDERED: PROPOFOL 200 MG/20 ML VIAL ONE (09:08)
[2022-11-07] MEDS ORDERED: ePHEDrine Sulfate 50 MG/10 ML VIAL ONE (09:08)
[2022-11-07] MEDS ORDERED: SUGAMMADEX SODIUM 200 MG/2 ML VIAL ONE (09:39)
[2022-11-07] MEDS ORDERED: fentaNYL 50 mcg/mL 1 mL Vial ONE (10:53)
[2022-11-07] MEDS ORDERED: Tamsulosin HCl 0.4 MG CAP ONE (10:53)
[2022-11-07] MEDS ORDERED: Acetaminophen 500 MG TAB ONE (12:28)
== END 2022-11-07 12:57 | disposition home or self-care (01) ==
LOC: SDC 06:53
PROVIDERS: ATTEND Neurological Surgery
PROC: 0RG40A0 Fusion of Cervicothoracic Vertebral Joint with Interbody Fusion Device, Anterior Approach, Anterior Column, Open Approach (ICD-10-PCS; principal; 2022-11-07)
PROC: 0RT50ZZ Resection of Cervicothoracic Vertebral Disc, Open Approach (ICD-10-PCS; principal; 2022-11-07)
DX: M54.12 Radiculopathy, cervical region (principal); M48.03 Spinal stenosis, cervicothoracic region; E78.5 Hyperlipidemia, unspecified; G89.29 Other chronic pain; M19.90 Unspecified osteoarthritis, unspecified site; F17.200 Nicotine dependence, unspecified, uncomplicated; Z79.899 Other long term (current) drug therapy; Z98.1 Arthrodesis status
CPT/HCPCS: C1713; C1889; J1170; J2405; J3010; J3490

== ENCOUNTER 2022-11-20 08:51 | Outpatient (CLI) | payer BC, OTHER | END 2022-11-20 08:52 | disposition home or self-care (01) | LOC: TBSIIMAG 08:51 | PROVIDERS: ATTEND Neurological Surgery | DX: M54.2 Cervicalgia (principal); Z98.890 Other specified postprocedural states; M47.812 Spondylosis without myelopathy or radiculopathy, cervical region | CPT/HCPCS: 72040 ==

== ENCOUNTER 2023-09-05 07:26 | Outpatient (CLI) | payer BC, OTHER ==
[2023-09-05 08:12] LABS: #Eosinphils 0.1 10x3/uL (0.0-0.5); #Monocytes 0.4 10x3/uL (0.0-1.1); #Neutrophils 2.7 10x3/uL (1.5-8.4); %Basophils 0.4 % (0.0-2.0); %Eosinophils 1.6 % (0.0-6.0); %Lymphocytes 38.6 % (18.0-47.0); %Monocytes 7.2 % (0.0-10.0); %Neutrophils 51.8 % (40.0-75.0); Hematocrit 46.9 % (38.8-50.0); Hemoglobin 16.2 g/dL (13.5-17.5); Mean Corpuscular HGB CONC 34.5 g/dL (32.0-36.0); Mean Corpuscular Hemoglobin 30.7 pg (27.0-33.0); Mean Corpuscular Volume 88.8 fl (81.2-95.1); Platelet Count 194 10x3/uL (150-450); RBC Distribution Width 12.7 % (11.5-14.5); Red Blood Cell (RBC) Count 5.28 10x6/uL (4.32-5.72); White Blood Cell (WBC) Count 5.2 10x3/uL (3.5-10.5)
[2023-09-05 08:33] LABS: Anion Gap 13 mmol/L (10-20); BUN (Urea Nitrogen) 24 mg/dL (8.4-25.7); Calc. Creatinine Clearance 0 mL/min (70-130); Calcium 8.8 mg/dL (7.8-10.44); Carbon Dioxide 20 mmol/L (22-29); Chloride 109 mmol/L (98-107); Estimated GFR 81; Glucose 131 mg/dL (70-105); Sodium 138 mmol/L (136-145)
== END 2023-09-05 07:27 | disposition home or self-care (01) ==
LOC: LABBT 07:26
PROVIDERS: ATTEND Surgery
DX: Z01.812 Encounter for preprocedural laboratory examination (principal); K43.9 Ventral hernia without obstruction or gangrene
CPT/HCPCS: 80048; 85025

== ENCOUNTER 2023-09-12 07:40 | Day surgery (SDC) | payer BC, OTHER ==
[2023-09-10 14:48] VITALS: BMI 32.7
[2023-09-12] MEDS ORDERED: Lidocaine 1% PF 5 ML VIAL ONE (09:36)
[2023-09-12] MEDS ORDERED: PROPOFOL 0 ML ONE (09:37)
[2023-09-12] MEDS ORDERED: PROPOFOL 20 ML ONE ×2 (09:37→11:47)
[2023-09-12] MEDS ORDERED: Bupivacaine 0.25% HCL 30 ML VIAL ONE (09:53)
[2023-09-12] MEDS ORDERED: EPINEPHrine 1 MG/ML VIAL ONE (09:53)
[2023-09-12] MEDS ORDERED: fentaNYL PF 100 MCG/2 ML SYRINGE ONE ×3 (10:23→12:19)
[2023-09-12] MEDS ORDERED: Sodium Chloride 0.9% 100 ML ONE (10:38)
[2023-09-12] MEDS ORDERED: CEFAZOLIN 2 GM VIAL ONE (10:38)
[2023-09-12] MEDS ORDERED: Rocuronium Bromide 10 MG/ML (10ML VIAL) ONE (10:49)
[2023-09-12] MEDS ORDERED: Ondansetron PF 4 MG/2 ML Vial ONE (10:54)
[2023-09-12] MEDS ORDERED: Dexamethasone 4 mg/ml Vial ONE (10:54)
[2023-09-12] MEDS ORDERED: Ketorolac Tromethamine 30 MG (1 mL) VIAL ONE (11:42)
[2023-09-12] MEDS ORDERED: SUGAMMADEX SODIUM 200 MG/2 ML VIAL ONE (11:44)
[2023-09-12] MEDS ORDERED: NEOSTIGMINE 3 MG/3 ML SYR 3 MG/3 ML SYRINGE ONE (11:44)
[2023-09-12] MEDS ORDERED: Glycopyrrolate 0.2 MG/ML 5 ML SYRINGE ONE (11:44)
[2023-09-12] MEDS ORDERED: fentaNYL 50 mcg/mL 1 mL Vial ONE (12:46)
[2023-09-12] MEDS ORDERED: HYDROmorphone 0.5 MG/0.5 ML SYRINGE ONE ×3 (12:49→13:17)
[2023-09-12] MEDS ORDERED: HYDROcodone/Acetaminophen 5/325 mg Tablet ONE (13:51)
== END 2023-09-12 14:21 | disposition home or self-care (01) ==
LOC: SDC 07:40
PROVIDERS: ATTEND Surgery
PROC: 0WUF4JZ Supplement Abdominal Wall with Synthetic Substitute, Percutaneous Endoscopic Approach (ICD-10-PCS; principal; 2023-09-12)
DX: K43.9 Ventral hernia without obstruction or gangrene (principal); E78.00 Pure hypercholesterolemia, unspecified; F17.290 Nicotine dependence, other tobacco product, uncomplicated; Z90.49 Acquired absence of other specified parts of digestive tract; Z90.89 Acquired absence of other organs; Z79.899 Other long term (current) drug therapy
CPT/HCPCS: C1781; J0171; J0665; J1100; J1170; J1885; J2405; J2704; J3010; J3490

== ENCOUNTER 2024-08-27 06:39 | Day surgery (SDC) | payer BC, OTHER ==
[2024-08-24 13:39] VITALS: BMI 32.7
[2024-08-27] MEDS ORDERED: CEFAZOLIN 2 GM VIAL ONE ×2 (07:06→08:15)
[2024-08-27] MEDS ORDERED: Lidocaine 1% (PF) 30 ML VIAL ONE (07:07)
[2024-08-27] MEDS ORDERED: EPINEPHrine 1 MG/ML VIAL ONE ×2 (07:07→08:15)
[2024-08-27] MEDS ORDERED: Bupivacaine PF 0.5% 30 ML VIAL ONE (08:15)
[2024-08-27] MEDS ORDERED: PROPOFOL 20 ML ONE (08:21)
[2024-08-27] MEDS ORDERED: Glycopyrrolate 0.2 MG/ML 5 ML SYRINGE ONE (08:29)
[2024-08-27] MEDS ORDERED: PHENYLEPHRINE-NS 100 MCG/ML 10 ML SYRINGE ONE (08:43)
[2024-08-27] MEDS ORDERED: Ondansetron PF 4 MG/2 ML Vial ONE (08:48)
[2024-08-27] MEDS ORDERED: Ketorolac Tromethamine 30 MG (1 mL) VIAL ONE (08:48)
[2024-08-27] MEDS ORDERED: Dexamethasone 4 mg/ml Vial ONE (08:48)
[2024-08-27] MEDS ORDERED: fentaNYL PF 100 MCG/2 ML SYRINGE ONE (10:24)
== END 2024-08-27 10:25 | disposition home or self-care (01) ==
LOC: SDC 06:39
PROVIDERS: ATTEND Orthopaedic Surgery
PROC: 0LN40ZZ Release Left Upper Arm Tendon, Open Approach (ICD-10-PCS; principal; 2024-08-27)
DX: M77.12 Lateral epicondylitis, left elbow (principal); F43.10 Post-traumatic stress disorder, unspecified; F32.A Depression, unspecified; Z87.891 Personal history of nicotine dependence; G47.33 Obstructive sleep apnea (adult) (pediatric); Z98.890 Other specified postprocedural states; R73.03 Prediabetes; Z90.89 Acquired absence of other organs; Z90.49 Acquired absence of other specified parts of digestive tract; Z79.899 Other long term (current) drug therapy; Z88.8 Allergy status to other drugs, medicaments and biological substances
CPT/HCPCS: A6223; J0171; J0665; J1100; J1885; J2405; J2704